=== PATIENT | female | born 1985 | race Caucasian/White ===

== ENCOUNTER 2022-02-21 16:10 | Inpatient (IN) ==
[2022-02-21 18:08] LABS: Basophils # 0.1 K/mcL (0.0-0.2); Basophils % 0.7 %; Eosinophils # 0.1 K/mcL (0.0-0.6); Eosinophils % 0.9 %; Hematocrit 45.9 % (35.3-44.9); Hemoglobin 15.5 g/dL (11.5-15.4); Immature Granulocytes % 0.5 % (0-4); Lymphocytes # 2.4 K/mcL (0.6-4.6); Lymphocytes % 22.2 %; Mean Corpuscular HGB Conc 33.8 g/dL (31.6-35.5); Mean Corpuscular Hemoglobin 32.1 pg (28.0-33.3); Monocytes # 0.8 K/mcL (0.0-1.3); Monocytes % 7.6 %; Neutrophils # 7.3 K/mcL (1.6-8.9); Platelet Count 279 K/mcL (140-400); Red Blood Count 4.83 M/mcL (3.82-4.97); Red Cell Distribution Width 14.1 % (11.5-14.5); Segmented Neutrophils % 68.1 %; White Blood Count 10.8 K/mcL (4.3-11.1)
[2022-02-21 18:12] LABS: Bacteria,Urine Few per hpf (None-Few); Bilirubin,Urine Negative (Negative); Blood,Urine Small (Negative); Clarity,Urine Turbid (Clear); Color,Urine Light-Yellow (Yellow); Glucose,Urine (UA) Normal (Normal); Ketones,Urine 10 mg/dL (Negative); Leukocyte Esterase,Urine Small (Negative); Mucus,Urine Few per lpf (None-Few); Nitrite,Urine Negative (Negative); Protein,Urine Trace mg/dL (Neg-Trace); RBC,Urine 0-3 per hpf (0-3); Specific Gravity,Urine 1.019 (1.010-1.025); Squamous Epithelial Cell,Urine Moderate per hpf (None-Few); Urobilinogen,Urine Normal (Normal)
[2022-02-21 18:22] LABS: Amphetamine Screen,Urine Negative ng/mL (Cutoff=1000); Barbiturate Screen,Urine Negative ng/mL (Cutoff=200); Benzodiazepines Screen,Urine Negative ng/mL (Cutoff=200); Cannabinoid Screen,Urine Negative ng/mL (Cutoff = 50); Cocaine Screen,Urine Negative ng/mL (Cutoff= 300); Opiate Screen,Urine Negative ng/mL (Cutoff=300); Phencyclidine Screen,Urine Negative ng/mL (Cutoff=25)
[2022-02-21 18:26] LABS: Acetaminophen < 10 mcg/mL (10-20); Alanine Aminotransferase 59 Units/L (7-52); Albumin/Globulin Ratio 1.3 (1.1-2.2); Alkaline Phosphatase 97 Units/L (34-104); Aspartate Amino Transferase 42 Units/L (13-39); BUN/Creatinine Ratio 7 (6-26); Bilirubin,Direct 0.2 mg/dL (0.0-0.2); Bilirubin,Indirect 0.8 mg/dL (0.0-1.0); Blood Urea Nitrogen 5 mg/dL (6-20); Calcium 8.9 mg/dL (8.6-10.3); Carbon Dioxide 22 mEq/L (23-29); Chloride 107 mEq/L (98-107); Chol/HDL Ratio 2.2 (0-4.9); Cholesterol 139 mg/dL (< 200); Ethanol < 10 mg/dL (Less than 10); Glucose 87 mg/dL (70-105); HDL Cholesterol 64 mg/dL (40-59); LDL Cholesterol,Calculated 62 mg/dL (< 100); Osmolality,Calculated 285 (280-300); Potassium 3.9 mEq/L (3.5-5.1); Salicylate < 2.5 mg/dL (15.0-30.0); Sodium 139 mEq/L (136-145); Triglycerides 65 mg/dL (< 150); eGFR For African Americans > 60 (> 60); eGFR For Non-African Americans > 60 (> 60)
[2022-02-21 18:32] LABS: Estimated Average Glucose 103 mg/dl; Hemoglobin A1C 5.2 %
[2022-02-21 22:39] LABS: Influenza A PCR Negative (Negative); Influenza B PCR Negative (Negative); Resp. Syncytial Virus PCR Negative (Negative)
[2022-02-21 22:42] LABS: SARS-CoV-2 by PCR (In House) Negative (Negative)
[2022-02-21] MEDS ORDERED: *HR* LORazepam 2 MG/ML VIAL IM PRN (23:07)
[2022-02-21] MEDS ORDERED: Haloperidol Lactate 5 MG/ML VIAL IM PRN (23:07)
[2022-02-21] MEDS ORDERED: haloperidoL 5 MG TABLET PO PRN (23:07)
[2022-02-21] MEDS ORDERED: Ibuprofen 400 MG TABLET PO PRN (23:07)
[2022-02-21] MEDS ORDERED: *HR* LORazepam 1 MG TABLET PO PRN (23:07)
[2022-02-22] MEDS: hydrOXYzine pamoate 25 MG CAPSULE PO PRN ×2 (00:42→22:23)
[2022-02-22] MEDS: traZODone 50 MG TABLET PO PRN ×2 (00:42→22:23)
[2022-02-22] MEDS ORDERED: MOM Conc 10 ML UD.LIQ PO PRN (08:14)
[2022-02-22] MEDS ORDERED: Mag Hydrox/Al Hydrox/Simeth 30 ML UDC PO PRN (08:14)
[2022-02-23] MEDS ORDERED: Naltrexone HCl 50 MG TABLET PO SCH (10:15)
[2022-02-23 11:29] VITALS: BP 117/83; PULSE 57; TEMP 98.4; O2SAT 98
== END 2022-02-23 15:45 | disposition home or self-care (01) | DRG 885 ==
LOC: EMEROOARM 16:10 → 1ANU 22:57
PROVIDERS: ADMIT Psychiatry & Neurology Psychiatry; ATTEND Psychiatry & Neurology Psychiatry